=== PATIENT | female | born 1945 | race Caucasian/White ===

== ENCOUNTER 2016-09-29 11:14 | Emergency (ER) | payer MEDICARE, OTHER ==
[~2016-09-29] VITALS: Ht 165.1 cm; Wt 108.9 kg
[2016-09-29 11:21] VITALS: BP 186/68
[2016-09-29] MEDS ORDERED: cefTRIAXone SOD 1,000 MG VL IM ONE (13:00)
== END 2016-09-29 13:30 | disposition home or self-care (01) ==
LOC: ER 11:14
DX: M17.0 Bilateral primary osteoarthritis of knee (principal); Z88.1 Allergy status to other antibiotic agents; Z96.652 Presence of left artificial knee joint
CPT/HCPCS: 73562; 96372

== ENCOUNTER 2018-11-12 06:59 | Day surgery (SDC) | payer MEDICARE, OTHER ==
[~2018-11-12] VITALS: Ht 167.6 cm; Wt 100.7 kg
[~2018-11-12 06:59] MED LIST: ALBUAER3 IN; APIX5TAB OR; ATEN100T PO; FLUT110A INH; FURO40TA4 PO; HYDR-531 PO; LOSA100T33 PO; METO2.5T11 PO; MULTTAB PO; OMEG120015 PO; POTA-220 PO; SIMV-8 PO
[2018-11-12] MEDS ORDERED: ceFAZolin 1GM VL ONE (07:25)
[2018-11-12] MEDS ORDERED: BUPIVACAINE 0.75% INJ 10ML MPV SDV IJ ONE (07:26)
[2018-11-12] MEDS ORDERED: LIDOCAINE 1% (LOCAL ANESTH.) PF 5ml SDV ONE (08:22)
[2018-11-12] MEDS ORDERED: SUCCINYLCHOLINE CHLORIDE 20 MG/ML 10ML VIAL IV ONE (08:22)
[2018-11-12] MEDS ORDERED: LEVOFLOXACIN 500MG 100 ML IV ONE (08:34)
[2018-11-12] MEDS ORDERED: MIDAZOLAM HCL 1MG/1ML-2 ML VIAL ONE (08:49)
[2018-11-12] MEDS ORDERED: PROPOFOL 10 MG/ML 20 ML IV ONE (08:54)
[2018-11-12] MEDS ORDERED: ETOMIDATE (2MG/ML) 20ML VIAL IV ONE (08:54)
[2018-11-12] MEDS ORDERED: METOCLOPRAMIDE HCL 5MG/ml INJ 2ml VIAL ONE (08:54)
[2018-11-12] MEDS ORDERED: ROCURONIUM 10MG/ML 10ML VIAL IV ONE (08:54)
[2018-11-12] MEDS ORDERED: fentaNYL CITRATE 100 MCG/2 ML VL ONE (09:07)
[2018-11-12] MEDS ORDERED: NEOSTIGMINE 1 MG/ML INJ (10mg/10ML VIAL) ONE (10:27)
[2018-11-12] MEDS ORDERED: GLYCOPYRROLATE 0.2 MG/ML 1ML VIAL ONE (10:27)
[2018-11-12] MEDS ORDERED: NALOXONE HCL 0.4 MG/ML VIAL IV PRN (10:30)
[2018-11-12] MEDS ORDERED: HYDROmorphone HCL 2 MG/ML VL IV PRN ×2 (10:30)
[2018-11-12] MEDS ORDERED: ONDANSETRON HCL 4 MG/2 ML VIAL IV PRN (10:30)
[2018-11-12] MEDS ORDERED: HYDROmorphone HCL 2 MG/ML VL IV ONE ×4 (11:02→11:53)
[2018-11-12 11:59] VITALS: BP 138/57
== END 2018-11-12 12:20 | disposition home or self-care (01) ==
LOC: SUR 06:59
PROVIDERS: ATTEND Surgery
DX: K43.9 Ventral hernia without obstruction or gangrene (principal); K42.9 Umbilical hernia without obstruction or gangrene; K43.2 Incisional hernia without obstruction or gangrene; E78.5 Hyperlipidemia, unspecified; I10 Essential (primary) hypertension; I48.91 Unspecified atrial fibrillation; E66.9 Obesity, unspecified; G47.33 Obstructive sleep apnea (adult) (pediatric); M17.0 Bilateral primary osteoarthritis of knee; Z79.899 Other long term (current) drug therapy; Z88.1 Allergy status to other antibiotic agents; Z90.49 Acquired absence of other specified parts of digestive tract; Z98.890 Other specified postprocedural states; Z87.891 Personal history of nicotine dependence; Z68.36 Body mass index [BMI] 36.0-36.9, adult
CPT/HCPCS: 49565; 49568; 49585; C1781; J0330; J0690; J1170; J1956; J2250; J2765; J3010; J3490; J2704

== ENCOUNTER 2020-02-17 10:13 | Emergency (ER) | payer MEDICARE, OTHER ==
[~2020-02-17] VITALS: Ht 165.1 cm; Wt 104.3 kg
[~2020-02-17 10:13] MED LIST changes: +MULT-733 PO; -MULTTAB PO
[2020-02-17 10:50] VITALS: BP 150/106
[2020-02-17 13:15] LABS: Basophils # (auto) 0 10 ^3/uL (0-0.2); Basophils % (auto) 0.4 % (0.0-2.0); Eosinophils # (auto) 0 10 ^3/uL (0-0.8); Eosinophils % (auto) 0.3 % (0.0-7.0); Hematocrit 40.9 % (36.0-46.0); Hemoglobin 13.5 g/dL (12.2-16.2); Lymphocytes # (auto) 1.5 10 ^3/uL (0.4-5.4); Mean Corpuscular Hemoglobin 24.1 pg (28.0-32.0); Monocytes # (auto) 0.6 10 ^3/uL (0-1.3)
[2020-02-17 13:18] LABS: Lymphocytes % (auto) 34.1 % (10.0-50.0); Monocytes % (auto) 13.1 % (0.0-12.0); Neutrophils # (auto) 2.3 10 ^3/uL (1.6-8.6); Neutrophils % (auto) 52.1 % (37.0-80.0); Nucleated Red Blood Cells % 0.1 %; Platelet Count (auto) 177 10^3/uL (140-450); Red Cell Distribution Width 14.7 % (11.8-14.3); White Blood Cell 4.4 10^3/uL (4.4-10.8)
[2020-02-17 13:31] LABS: Albumin 3.8 g/dL (3.4-5.0); Anion Gap 5 (5-15); Blood Urea Nitrogen 10 mg/dL (7-18); Calcium 8.9 mg/dL (8.5-10.1); Carbon Dioxide 31 mmol/L (21-32); Chloride 100 mmol/L (98-107); Glucose 96 mg/dL (74-106); Potassium 3.3 mmol/L (3.5-5.1); Sodium 136 mmol/L (136-145)
[2020-02-17 13:36] LABS: INR 1.1 (0.9-1.15)
[2020-02-17 13:40] LABS: Alanine Aminotransferase 25 U/L (13-56); Alkaline Phosphatase 140 U/L (45-117); Aspartate Aminotransferase 29 U/L (15-37); BUN/Creatinine Ratio 14.1; Bilirubin, Total 0.7 mg/dL (0.2-1.0); GFR African American 104 mL/min; GFR Non-African American 86 mL/min; Total Protein 7.8 g/dL (6.4-8.2)
== END 2020-02-17 17:32 | disposition home or self-care (01) ==
LOC: ER 10:13
DX: K62.5 Hemorrhage of anus and rectum (principal); E78.5 Hyperlipidemia, unspecified; I10 Essential (primary) hypertension; Z88.1 Allergy status to other antibiotic agents
CPT/HCPCS: 36415; 80053; 83735; 84484; 85025; 85610